=== PATIENT | female | born 1980 | race Caucasian/White ===

== ENCOUNTER 2016-11-09 11:00 | Emergency (ER) | payer OTHER ==
[~2016-11-09] VITALS: Ht 152.4 cm; Wt 36.5 kg
[2016-11-09] MEDS ORDERED: SODIUM CHLORIDE 0.9% 1,000 ML IV ONE (12:04)
[2016-11-09 12:13] LABS: PATH.CAST-FLAG NOT PRESENT; SPERM-FLAG NOT PRESENT; SRC-FLAG NOT PRESENT; XTAL-FLAG NOT PRESENT; YLC-FLAG NOT PRESENT
[2016-11-09] MEDS ORDERED: MORPHINE SULFATE 4 MG/ML, 1ML ONE ×2 (12:21→13:30)
[2016-11-09] MEDS ORDERED: ONDANSETRON 2MG/ML, 2ML ONE (12:21)
[2016-11-09] MEDS: MORPHINE SULFATE 4 MG/ML, 1ML IVPush PRN ×2 (12:22→13:35)
[2016-11-09] MEDS ORDERED: ONDANSETRON 2MG/ML, 2ML IVPush ONE (12:30)
[2016-11-09] MEDS ORDERED: SODIUM CHLORIDE 0.9% 1,000ML IVBOLUS ONE (12:30)
[2016-11-09] MEDS ORDERED: FAMOTIDINE 20 MG/2 ML IVP ONE (12:30)
[2016-11-09] MEDS ORDERED: SODIUM CHLORIDE FLUSH 10ML SYR IVF ONE (12:30)
[2016-11-09] MEDS ORDERED: FAMOTIDINE 20 MG/2 ML ONE (13:04)
[2016-11-09 13:06] LABS: ASPARTATE AMINO TRANSFERASE 14 U/L (15-37); BLOOD UREA NITROGEN 9 mg/dL (7-18)
[2016-11-09 13:13] LABS: IS PT STATUS REG ER OR PRE ER? YES
[2016-11-09] MEDS ORDERED: OMNIPAQUE 350 MG/ML, 75ML BOTTLE ONE (13:29)
[2016-11-09] MEDS ORDERED: MAALOX/HYOSCYAMINE/LIDOCAINE 45 ML BOTTLE PO ONE (14:30)
[2016-11-09 15:56] VITALS: BP 110/73
== END 2016-11-09 15:59 | disposition home or self-care (01) ==
LOC: ED 11:47
DX: R10.12 Left upper quadrant pain (principal); M41.9 Scoliosis, unspecified; Z90.49 Acquired absence of other specified parts of digestive tract; R19.7 Diarrhea, unspecified; R11.2 Nausea with vomiting, unspecified
CPT/HCPCS: 36415; 74022; 74177; 80053; 81001; 82010; 83605; 83690; 84484; 85025; 85610; 85730; 93005; 96361; 96374; 96375; 96376; 99285; J2405; J7030; Q9967; S0028